=== PATIENT | male | born 1990 | race Caucasian/White ===

== ENCOUNTER 2022-05-31 10:05 | Emergency (ER) | payer BC, SELFPAY ==
[2022-05-31 10:20] VITALS: BP 122/87; PULSE 117; RESP 20; TEMP 36.3; O2SAT 98
--- NOTE | 2022-05-31 10:47 | ED.NAVMDI ---
HPI - Nausea/Vomiting/Diarrhea General Chief complaint: Nausea/Vomiting/Diarrhea Stated complaint: Vomiting/diarrhea/dehydrated Time Seen by Provider: 05/31/22 10:47 Source: patient Mode of arrival: ambulatory Limitations: no limitations History of Present Illness HPI Narrative: 31-year-old male with no significant past medical history presents to the ER with a 1 day history of -- nausea with multiple episodes of vomiting -- multiple episodes of diarrhea -- diffuse abdominal pain no fever or chills. MD elicited complaint: nausea, vomiting and diarrhea Pertinent past history: anorexia Onset (ago): day(s) ( Symptoms started yesterday.) Description of vomiting: watery Description of diarrhea: watery Associated nausea: Yes Associated abdominal pain: Yes Location of pain: none Radiation: diffuse Severity: moderate Quality: cramping Exacerbating factors: none Relieving factors: none Associated symptoms: denies other symptoms Related Data Home Medications Medication Instructions Recorded Confirmed No Home Medications 05/31/22 05/31/22 Exam Const: General: healthy appearing and no acute distress Nutritional Appearance: well nourished Orientation/consciousness: patient oriented x3 Limitations: no limitations HENMT: Head: normal to inspection Ears: external ears normal Face/Nose/Sinus: Normal external nose present Face and sinus: normal facial exam Mouth: Yes Normal oral and palatal mucosa present Throat: posterior oropharynx normal Eyes: Conjunctivae: conjunctivae normal Cornea: corneas normal Pupils: Equal, round and reactive pupils present EOM: EOMs intact bilaterally Direct Ophthalmoscopy: no photophobia Neck: Neck: normal visual inspection, no lymphadenopathy and no meningeal signs Chest: Chest palpation & inspection: normal inspection of the chest Resp: Effort & Inspection: normal respiratory effort Auscultation: clear to auscultation bilaterally Cardio: Rate: regular rate Rhythm: regular rhythm GI: GI Palp: Yes Soft to palpation Auscultation: normal bowel sounds Other: Abdomen is soft and nontender. No rigidity / rebound. Back/Spine/Pelvis: Back: no CVA tenderness Skin: General skin exam: normal color Rashes: no rashes Wounds: no wounds Neuro: General: patient oriented x3, moves all extremities, no meningeal signs, no focal motor deficits and CN's II-XI intact bilaterally Extrem: General: normal to inspection, no clubbing, cyanosis or edema and no pedal edema Psych: Mental Status: mental status grossly normal Affect: normal affect Attitude: cooperative Course Course Emergency Course: Gastroenteritis elevated lactic acid and elevated white cell count-- abdominal examination is unremarkable. Discussed with the patient about the CT scan. Will not do the CAT scan at this point. Advised to return to the ER if he has ongoing abdominal pain. Will give 2.5 L of IV fluids in view of his elevated lactate. Vital Signs Vital signs: Vital Signs Temperature 36.3 C L 05/31/22 10:20 Pulse Rate 117 H 05/31/22 10:20 Respiratory Rate 05/31/22 10:20 Blood Pressure 122/87 05/31/22 10:20 Pulse Oximetry 98 05/31/22 10:20 Oxygen Delivery Room Air 05/31/22 10:20 Temperature 36.3 C L 05/31/22 10:20 Pulse Rate 123 H 05/31/22 12:15 Respiratory Rate 05/31/22 12:15 Blood Pressure 129/86 05/31/22 12:15 Pulse Oximetry 99 05/31/22 12:15 Oxygen Delivery Room Air 05/31/22 12:15 MDM - Nausea/Vomiting/Diarrhea MDM Narrative Medical decision making narrative: Renal insufficiency gastroenteritis leukocytosis Differential Diagnosis Differential diagnosis: Likely traveler's diarrhea, food poisoning, gastroenteritis and clostridium difficile infection Medical Records Attestation: I reviewed the patient's medical records. Lab Data Attestation: I reviewed the patient's lab results. 05/31/22 11:05 05/31/22 11:05 Labs: Lab Resu
[2022-05-31] MEDS: SODIUM CHLORIDE 0.9% IV 1,000 ML 999 ML IV CONT ×2 (10:59→12:17)
[2022-05-31] MEDS: PROCHLORPERAZINE EDISYLATE 10 MG/2 ML VIAL IV PUSH (11:00)
[2022-05-31 11:12] LABS: Basophils Absolute Auto 0.03 K/mm3 (0.00-0.10); Basophils Percent Auto 0.2 % (0.0-1.0); Eosinophils Absolute Auto 0.01 K/mm3 (0.02-0.50); Eosinophils Percent Auto 0.1 % (1.0-6.0); Hemoglobin 16.3 g/dL (14.0-18.0); Immature Granulocyte Absolute 0.09 K/mm3 (0.00-0.00); Immature Granulocyte Percent A 0.5 % (0.0-0.0); Lymphocytes Absolute Auto 0.17 K/mm3 (1.10-4.50); Lymphocytes Percent Auto 0.9 % (18.0-42.0); Mean Corpuscular HGB Conc 34.7 g/dL (32.0-36.0); Mean Corpuscular Hemoglobin 29.2 pg (27.0-31.0); Mean Corpuscular Volume 84.2 fL (78.0-102.0); Monocytes Absolute Auto 0.55 K/mm3 (0.10-0.90); Monocytes Percent Auto 2.8 % (2.0-11.0); Neutrophils Percent Auto 95.5 % (50.0-70.0); Platelet Count Result 264 K/mm3 (150-420); Red Blood Count 5.58 M/mm3 (4.70-6.10); Red Cell Distribution Width 11.8 % (11.6-14.4); White Blood Count 19.9 K/mm3 (4.8-10.8)
[2022-05-31 11:23] LABS: INR 1.1; Prothrombin Time 11.6 Seconds (9.50-12.10)
[2022-05-31 11:37] LABS: Alanine Aminotransferase 66 U/L (16-63); Albumin Level 4.1 g/dL (3.4-5.0); Alkaline Phosphatase 65 U/L (46-116); Anion Gap 8 mmol/L (8-16); Aspartate Amino Transferase 30 U/L (15-37); Bilirubin,Total 0.8 mg/dL (0.00-1.00); Blood Urea Nitrogen 18 mg/dL (7-18); Calcium 8.9 mg/dL (8.5-10.1); Carbon Dioxide 28 mmol/L (21-32); Chloride 100 mmol/L (98-108); Estimated CRCL calculation 73 ml/min; Estimated Glomerular Filt Rate > 60; Glucose 133 mg/dL (70-99); Osmolality Calculated 285 mOsm/kg (285-295); Potassium 4.5 mmol/L (3.5-5.1); Sodium 136 mmol/L (136-145); Total Protein 7.5 g/dL (6.4-8.2)
[2022-05-31 11:38] LABS: Lipase 18 U/L (16-77); Troponin I < 4.0 ng/L (0.00-60.4)
[2022-05-31 11:39] LABS: Lactic Acid Reflex 3.2 mmol/L (0.4-2.0)
[2022-05-31 12:15] VITALS: BP 129/86; PULSE 123; RESP 20; O2SAT 99
[2022-05-31] MEDS: SODIUM CHLORIDE 0.9% IV 500 ML 999 ML IV CONT (12:17)
[2022-05-31 13:06] VITALS: BP 130/63; PULSE 123; RESP 20; TEMP 36.6; O2SAT 98
== END 2022-05-31 13:12 | disposition home or self-care (01) ==
PROVIDERS: Emergency Provider Internal Medicine Critical Care Medicine
DX: K52.9 Noninfective gastroenteritis and colitis, unspecified (principal); E86.0 Dehydration; D72.829 Elevated white blood cell count, unspecified
CPT/HCPCS: 36415; 80053; 83605; 83690; 84484; 85025; 85610; 96361; 96374; 99284; J0780; J7030; J7040

== ENCOUNTER 2023-02-15 19:45 | Emergency (ER) | payer BC, SELFPAY ==
--- NOTE | ~2023-02-15 | CT_ITS ---
EXAMINATION: CT abdomen pelvis wo con DATE: 02/15/2023 20:23 INDICATION: LEFT FLANK PAIN X 2 HRS. HX OF KIDNEY STONES. TECHNIQUE: Computed tomography (CT) of the abdomen and pelvis was performed without intravenous contr ast. Automated exposure control and iterative reconstruction technique were employed. The dose-length product was 233.42 mGy-cm. COMPARISON: None. FINDINGS: Lower thorax: Right middle lobe scar. Liver: Diffuse fatty infiltration. Biliary/Gallbladder: Gallbladder is normal. No bile duct dilation. Pancreas: No mass or duct dilation. Spleen: Normal. Adrenals:No mass. Kidneys: Mild left perinephric stranding. Moderate pelviectasis, caliectasis, and proximal ureterecta sis. 7 mm stone in the proximal left ureter. Additional punctate bilateral nonobstructing calculi. No suspicious mass. GI tract: No small or large bowel dilation. Normal appendix. Mesentery/Peritoneum: No ascites, mass, or free air. Retroperitoneum: No mass. Pelvis: Pelvic organs are within normal limits. Soft Tissues: Soft tissues and body wall unremarkable. Bones: No acute osseous finding. IMPRESSION: 7 mm proximal left ureteral stone causing moderate obstructive uropathy. Hepatic steatosis. Reviewed, dictated and finalized at location K.
[2023-02-15 19:47] VITALS: BP 129/99; PULSE 88; RESP 18; TEMP 37.1; O2SAT 100
[2023-02-15] MEDS: KETOROLAC 30 MG/ML VIAL (*BKC) IV PUSH (20:09)
[2023-02-15] MEDS: SODIUM CHLORIDE 0.9% IV 1,000 ML 999 ML IV CONT (20:11)
[2023-02-15] MEDS: ONDANSETRON INJ 4 MG/2 ML VIAL IV PUSH (20:11)
--- NOTE | 2023-02-15 20:22 | ED.BACK ---
HPI - Back Pain/Injury General Chief Complaint: Back Pain/Injury Stated Complaint: Back Pain Source: patient Mode of arrival: ambulatory Limitations: no limitations History of Present Illness HPI Narrative: This is a 32-year-old male that presents with left flank pain radiating into his left groin started earlier today has a history of kidney stones, currently no hematuria no dysuria does have some nausea with no vomiting no chest pain no shortness of breath no fever chills. MD elicited complaint: back pain Pertinent past history: prior back pain Onset (ago): hour(s) Timing: constant Severity: severe Pain scale (0-10): 8 Quality: stabbing Location: left flank Radiation: abdomen Exacerbating factors: none Related Data Allergies Allergy/AdvReac Type Severity Reaction Status Date / Time Sulfa (Sulfonamide Allergy Unknown Verified 05/31/22 13:14 Antibiotics) Review of Systems Review of Systems: All systems reviewed & are unremarkable except as noted in HPI and below PMFSH Past Medical History Medical History History of nephrolithiasis Exam Const: General: no acute distress Nutritional Appearance: well nourished Orientation/consciousness: patient oriented x3 Limitations: no limitations Eyes: Conjunctivae: conjunctivae normal Pupils: Equal, round and reactive pupils present Neck: Neck: normal visual inspection and no lymphadenopathy Chest: Chest palpation & inspection: normal inspection of the chest Resp: Effort & Inspection: normal respiratory effort Auscultation: clear to auscultation bilaterally Cardio: Rate: regular rate Rhythm: regular rhythm GI: GI Palp: Yes Soft to palpation and Yes Tenderness to palpation present (GI) Auscultation: normal bowel sounds : General: Yes CVA tenderness Male General Exam: Yes normal external exam Urinary Catheter: Urinary Catheter: patent and draining Back/Spine/Pelvis: Back: CVA tenderness Skin: General skin exam: normal color Rashes: no rashes Wounds: no wounds Neuro: General: patient oriented x3 and moves all extremities Extrem: General: normal to inspection and no clubbing, cyanosis or edema Psych: Mental Status: mental status grossly normal Affect: normal affect Course Course Emergency Course: patient with left flank receiving IV fluids, received IV Toradol and Zofran, CT scan and blood work reviewed with patient. Vital Signs Vital signs: Vital Signs Temperature 37.1 C 02/15/23 19:47 Pulse Rate 88 09/30/23 19:47 Respiratory Rate 18 02/15/23 19:47 Blood Pressure 129/99 H 02/15/23 19:47 Pulse Oximetry 100 02/15/23 19:47 Oxygen Delivery Room Air 02/15/23 19:47 Temperature 37.1 C 02/15/23 19:47 Pulse Rate 88 02/15/23 19:47 Respiratory Rate 18 02/15/23 19:47 Blood Pressure 129/99 H 02/15/23 19:47 Pulse Oximetry 100 02/15/23 19:47 Oxygen Delivery Room Air 02/15/23 19:47 Critical Care Time Critical Care Time Critical Care Time: No Discharge Plan Discharge Clinical Impression: Urolithiasis Qualifiers: Urinary calculus location: ureter Qualified Code(s): N20.1 - Calculus of ureter Patient Disposition: Home, Self-Care Condition: Stable Instructions: Antibiotic Form, Kidney Stones (ED) Additional Instructions: advised to follow-up with primary for referral to urology will supply patient with a strainer, take medicine as prescribed. Prescriptions: New tramadol 50 mg tablet 50 mg PO Q6H PRN (Reason: pain) Qty: 20 0RF tamsulosin [Flomax] 0.4 mg capsule 0.4 mg PO DAILY Qty: 7 0RF ondansetron 4 mg tablet,disintegrating 4 mg PO Q6H PRN (Reason: nausea and vomiting) Qty: 14 0RF Follow-up/Referrals: UNKNOWN,DOCTOR [Primary Care Provider] - Time of Disposition: 20:43
[2023-02-15 20:30] VITALS: BP 138/95; PULSE 71; RESP 18; O2SAT 98
[2023-02-15] MEDS: MORPHINE SULFATE (*CRX) 4 MG/ML INJ IV PUSH (20:44)
--- NOTE | 2023-02-15 21:06 | PC.NURSE ---
Addendum entered by Luis Young RN 02/15/23 21:27: 2054-RECEIVABLE CLERK MADE AWARE LABS NEVER DRAWN RECEIVABLE CLERK FAILED TO CALL LAB UNIT WAS BUSY/FULL SO LAB STAFF NEVER ARRIVED TO DRAW LABS. PT AND SIGNIFICANT OTHER UPDATED REGARDING DELAY-LABS. BOTH ACKNOWLEDGED AND VERBALIZED UNDERSTANDING. PT DENIES ANY NEEDS AT THIS TIME. CALL LIGHT REMAINS IN REACH. RECEIVABLE CLERK OBTAINED BLOOD DRAW AND WALKED LABS DOWN. RECEIVABLE CLERK CALLED AND SPOKE WITH WILI PECK TO MAKE AWARE OF LAB DROP OFF. 2024-PT RETURNS FROM IMAGING, VIA HOSPITAL WHEELCHAIR, ESCORTED BY [facility]. 2014-PT TRANSPORTED TO IMAGING, VIA HOSPITAL WHEELCHAIR ESCORTED BY [employer]. PT SIGNIFICANT OTHER IS BROUGHT BACK TO BEDSIDE AND PROVIDED UPDATE. Original Note: 2054-RECEIVABLE CLERK MADE AWARE LABS NEVER DRAWN RECEIVABLE CLERK FAILED TO CALL LAB SO LAB STAFF NEVER ARRIVED TO DRAW LABS. PT AND SIGNIFICANT OTHER UPDATED REGARDING DELAY-LABS. BOTH ACKNOWLEDGED AND VERBALIZED UNDERSTANDING. PT DENIES ANY NEEDS AT THIS TIME. CALL LIGHT REMAINS IN REACH. RECEIVABLE CLERK OBTAINED BLOOD DRAW AND WALKED LABS DOWN. RECEIVABLE CLERK CALLED AND SPOKE WITH WILI PECK TO MAKE AWARE OF LAB DROP OFF. 2024-PT RETURNS FROM IMAGING, VIA HOSPITAL WHEELCHAIR, ESCORTED BY [facility]. 2014-PT TRANSPORTED TO IMAGING, VIA HOSPITAL WHEELCHAIR ESCORTED BY [facility] [facility]. PT SIGNIFICANT OTHER IS BROUGHT BACK TO BEDSIDE AND PROVIDED UPDATE.
[2023-02-15 21:11] LABS: Basophils Absolute Auto 0.05 K/mm3 (0.00-0.10); Basophils Percent Auto 0.4 % (0.0-1.0); Eosinophils Absolute Auto 0.13 K/mm3 (0.02-0.50); Hematocrit 43.4 % (40.0-54.0); Hemoglobin 14.9 g/dL (14.0-18.0); Immature Granulocyte Absolute 0.07 K/mm3 (0.00-0.00); Immature Granulocyte Percent A 0.5 % (0.0-0.0); Lymphocytes Absolute Auto 1.02 K/mm3 (1.10-4.50); Lymphocytes Percent Auto 7.8 % (18.0-42.0); Mean Corpuscular HGB Conc 34.3 g/dL (32.0-36.0); Mean Corpuscular Hemoglobin 29.3 pg (27.0-31.0); Mean Corpuscular Volume 85.4 fL (78.0-102.0); Mean Platelet Volume 10.1 fl (8.7-11.0); Monocytes Absolute Auto 0.61 K/mm3 (0.10-0.90); Monocytes Percent Auto 4.6 % (2.0-11.0); Neutrophils Absolute Auto 11.3 K/mm3 (1.7-7.2); Neutrophils Percent Auto 85.7 % (50.0-70.0); Platelet Count Result 291 K/mm3 (150-420); Red Blood Count 5.08 M/mm3 (4.70-6.10); Red Cell Distribution Width 11.6 % (11.6-14.4); White Blood Count 13.2 K/mm3 (4.8-10.8)
[2023-02-15 21:28] LABS: Alanine Aminotransferase 83 U/L (16-63); Albumin Level 3.8 g/dL (3.4-5.0); Alkaline Phosphatase 59 U/L (46-116); Anion Gap 13 mmol/L (8-16); Aspartate Amino Transferase 35 U/L (15-37); Bilirubin,Total 0.4 mg/dL (0.00-1.00); Blood Urea Nitrogen 12 mg/dL (7-18); Calcium 8.8 mg/dL (8.5-10.1); Carbon Dioxide 23 mmol/L (21-32); Chloride 104 mmol/L (98-108); Estimated CRCL calculation 75 ml/min; Estimated Glomerular Filt Rate > 60; Glucose 128 mg/dL (70-99); Osmolality Calculated 291 mOsm/kg (285-295); Potassium 3.6 mmol/L (3.5-5.1); Sodium 140 mmol/L (136-145); Total Protein 6.7 g/dL (6.4-8.2)
--- NOTE | 2023-02-15 21:45 | PC.NURSE ---
214-OCCUPATIONAL THERAPIST REHAB MANAGER WALKED PT URINE SPECIMEN TO LAB. WILI PECK PRESENT AND MADE AWARE.
[2023-02-15 21:54] LABS: Appearance Urine Clear (Clear); Bilirubin Urine Negative (Negative); Blood Urine 1+ (Negative); Color Urine Yellow (Yellow); Glucose Urine UA Negative (Negative); Ketones Urine Negative (Negative); Leukocyte Esterase Ur Negative LEU/UL (Negative); Nitrate Urine Negative (Negative); Protein Urine Negative (Negative); Urobilinogen Urine 0.2 mg/dL (0.2-1.0)
[2023-02-15 22:01] LABS: Add Urine Microscopic? YES; Calcium Oxalate Crystals Urine Present /hpf; Mucus Urine Heavy /lpf
[2023-02-15 22:12] VITALS: BP 138/89; PULSE 73; RESP 16; O2SAT 98
== END 2023-02-15 22:12 | disposition home or self-care (01) ==
PROVIDERS: Emergency Provider Emergency Medicine
DX: N20.1 Calculus of ureter (principal)
CPT/HCPCS: 36415; 74176; 80053; 81001; 85025; 96361; 96374; 96375; 99284; J1885; J2270; J2405; J7030

== ENCOUNTER 2023-03-10 17:10 | Emergency (ER) | payer BC, SELFPAY ==
--- NOTE | 2023-03-10 17:17 | ED.GENADULT ---
HPI - General Adult General Chief complaint: Back Pain/Injury Stated complaint: kidney stone Time Seen by Provider: 03/10/23 17:15 History of Present Illness HPI narrative: The patient is a 32-year-old male who was seen here 02/15/2023 for left flank pain and diagnosed with a 7 mm left ureteral stone, CT results below. He was prescribed tramadol and Flomax but only a few pills. He has run out of both. He is currently only taking Tylenol and ibuprofen as needed for pain. No vomiting. He has met with a urologist and is scheduled for external shockwave lithotripsy at [facility] in [facility] tomorrow. His pain has continued and is more severe than usual, left flank and left lower quadrant of the abdomen radiating to the left back, with hematuria and nausea but no vomiting. No fevers or chills. No dysuria. Related Data Allergies Allergy/AdvReac Type Severity Reaction Status Date / Time Sulfa (Sulfonamide Allergy Unknown Verified 03/10/23 17:19 Antibiotics) Review of Systems Review of Systems: All systems reviewed & are unremarkable except as noted in HPI and below Constitutional: Constitutional: Denies chills, Denies excessive sweating, Denies fatigue, Denies fever(s), Denies headache(s) and Denies weakness Eyes: Eyes: Denies change in vision and Denies photophobia ENT: Denies dysphagia, Denies dizziness, Denies headache(s), Denies lip swelling, Denies nasal congestion, Denies sore throat and Denies tongue swelling Cardiovascular: Cardiovascular: Denies chest pain, Denies syncope, Denies rapid heart rate and Denies dyspnea Respiratory: Respiratory: Denies cough, Denies dyspnea and Denies wheezing Gastrointestinal: Gastrointestinal: Reports abdominal pain, Denies constipation, Denies dysphagia, Denies diarrhea, Reports nausea and Denies vomiting Genitourinary: Genitourinary: Reports hematuria, Denies dysuria, Denies urinary frequency and Denies urinary urgency Musculoskeletal: Musculoskeletal: Reports back pain, Denies myalgias, Denies arthralgias, Denies joint swelling and Denies numbness Integumentary/Breasts: Skin/Breast: Denies pruritus, Denies erythema and Denies rash Neurologic: Denies confusion, Denies dizziness, Denies syncope, Denies headache(s), Denies focal weakness, Denies numbness and Denies weakness Psychiatric: Psychiatric: Denies anxiety and Denies confusion Endocrine: Endocrine: Denies excessive sweating and Denies fatigue Hematologic/Lymphatic: Hematologic/Lymphatic: Denies easy bleeding and Denies easy bruising Allergic/Immunologic: Allergic/Immunologic: Denies lip swelling, Denies tongue swelling and Denies wheezing PMFSH Past Medical History Medical History History of nephrolithiasis Exam Const: General: healthy appearing, no acute distress, alert and well nourished Nutritional Appearance: well nourished Orientation/consciousness: patient oriented x3 Limitations: no limitations HENMT: Head: normal to inspection Ears: external ears normal Face/Nose/Sinus: normal facial exam Face and sinus: normal facial exam Mouth: Yes moist mucous membranes Throat: posterior oropharynx normal Eyes: Conjunctivae: conjunctivae normal Pupils: Equal, round and reactive pupils present EOM: EOMs intact bilaterally Neck: Neck: normal visual inspection and no meningeal signs Chest: Chest palpation & inspection: normal inspection of the chest and no tenderness Resp: Effort & Inspection: normal respiratory effort and not labored Auscultation: clear to auscultation bilaterally, no crackles, no rhonchi and no wheezes Cardio: Rate: regular rate Rhythm: regular rhythm Heart sounds: no murmurs GI: Inspection: non-distended GI Palp: Yes Soft to palpation, Yes Tenderness to palpation present (GI) (in LLQ and L flank, moderate), No Guarding due to palpation present (GI) and No Rebound tenderness present : General: Yes CVA tenderness (on
[2023-03-10 17:21] VITALS: BP 132/96; PULSE 97; RESP 17; TEMP 36.4; O2SAT 98
[2023-03-10] MEDS: SODIUM CHLORIDE 0.9% IV 1,000 ML 999 ML IV CONT (17:52)
[2023-03-10] MEDS: KETOROLAC 30 MG/ML VIAL (*BKC) IV PUSH (17:53)
[2023-03-10] MEDS: ONDANSETRON INJ 4 MG/2 ML VIAL IV PUSH (17:54)
[2023-03-10 17:55] LABS: Basophils Absolute Auto 0.04 K/mm3 (0.00-0.10); Basophils Percent Auto 0.5 % (0.0-1.0); Eosinophils Absolute Auto 0.09 K/mm3 (0.02-0.50); Eosinophils Percent Auto 1.1 % (1.0-6.0); Hematocrit 45.8 % (40.0-54.0); Hemoglobin 15.7 g/dL (14.0-18.0); Immature Granulocyte Absolute 0.03 K/mm3 (0.00-0.00); Immature Granulocyte Percent A 0.4 % (0.0-0.0); Lymphocytes Absolute Auto 1.77 K/mm3 (1.10-4.50); Lymphocytes Percent Auto 20.8 % (18.0-42.0); Mean Corpuscular HGB Conc 34.3 g/dL (32.0-36.0); Mean Corpuscular Hemoglobin 29.2 pg (27.0-31.0); Mean Corpuscular Volume 85.3 fL (78.0-102.0); Mean Platelet Volume 9.7 fl (8.7-11.0); Monocytes Absolute Auto 0.54 K/mm3 (0.10-0.90); Monocytes Percent Auto 6.4 % (2.0-11.0); Neutrophils Percent Auto 70.8 % (50.0-70.0); Platelet Count Result 347 K/mm3 (150-420); Red Blood Count 5.37 M/mm3 (4.70-6.10); Red Cell Distribution Width 11.6 % (11.6-14.4); White Blood Count 8.5 K/mm3 (4.8-10.8)
[2023-03-10] MEDS: TAMSULOSIN HCL 0.4 MG CAPSULE PO (17:58)
[2023-03-10 18:17] LABS: Alanine Aminotransferase 80 U/L (16-63); Albumin Level 4.2 g/dL (3.4-5.0); Alkaline Phosphatase 63 U/L (46-116); Amylase 34 U/L (25-115); Anion Gap 13 mmol/L (8-16); Aspartate Amino Transferase 39 U/L (15-37); Bilirubin,Total 0.6 mg/dL (0.00-1.00); Blood Urea Nitrogen 13 mg/dL (7-18); Calcium 9.6 mg/dL (8.5-10.1); Carbon Dioxide 27 mmol/L (21-32); Chloride 101 mmol/L (98-108); Estimated Glomerular Filt Rate 59; Glucose 105 mg/dL (70-99); Lipase 33 U/L (16-77); Osmolality Calculated 292 mOsm/kg (285-295); Potassium 3.7 mmol/L (3.5-5.1); Sodium 141 mmol/L (136-145); Total Protein 7.4 g/dL (6.4-8.2)
[2023-03-10 18:44] LABS: Appearance Urine Clear (Clear); Bilirubin Urine 1+ (Negative); Blood Urine 3+ (Negative); Glucose Urine UA Negative (Negative); Ketones Urine Trace (Negative); Leukocyte Esterase Ur Trace LEU/UL (Negative); Nitrate Urine Negative (Negative); Protein Urine 2+ (Negative); Specific Grav Ur >= 1.030 (1.010-1.020)
[2023-03-10] MEDS: MORPHINE SULFATE (*CRX) 4 MG/ML INJ IV PUSH (18:49)
[2023-03-10 18:52] LABS: Add Urine Microscopic? YES; Bacteria Urine 4+ /hpf; Calcium Oxalate Crystals Urine Present /hpf; Color Urine Dark Orange (Yellow); RBC Urine >75 /hpf (0-2); Squamous Epithelial Cell Urine Occasional /hpf (Few)
[2023-03-10 18:53] LABS: Amorphous Sediment Urine Heavy
[2023-03-10 18:59] VITALS: BP 147/106; PULSE 81; RESP 18; O2SAT 100
[2023-03-10 19:42] VITALS: PULSE 87; RESP 18; O2SAT 96
[2023-03-10 20:08] VITALS: BP 136/78; PULSE 78; RESP 20; TEMP 36.6; O2SAT 98
== END 2023-03-10 20:09 | disposition home or self-care (01) ==
PROVIDERS: Emergency Provider Emergency Medicine
DX: N20.2 Calculus of kidney with calculus of ureter (principal); N39.0 Urinary tract infection, site not specified
CPT/HCPCS: 36415; 80053; 81001; 82150; 83690; 85025; 96361; 96365; 96375; 99284; A9270; J0696; J1885; J2270; J2405; J7030

== ENCOUNTER 2025-04-09 02:32 | Emergency (ER) | payer BC, SELFPAY ==
--- NOTE | ~2025-04-09 | CT_ITS ---
CT HEAD NON-CONTRAST Clinical History: FRONTAL HEADACHE X 1 WEEK. HYPERTENSION. Comparison: None Technique: Unenhanced axial images skull base to vertex Coronal, sagittal reformats CT images acquired with automatic exposure control for dose reduction DLP: 605 mGy-cm Findings: Sulci, ventricles: Unremarkable. No intracerebral hemorrhage. No evidence acute territorial infarct. No mass effect, midline shift. Bony calvarium intact. Visualized paranasal sinuses: Clear. Mastoid air cells: Clear. Small contusion right occipital scalp. IMPRESSION: 1. No acute intracranial findings. Reviewed, dictated and finalized at location R. [employer]
[2025-04-09 02:32] VITALS: BP 161/106; PULSE 108; RESP 16; TEMP 36.6; O2SAT 99
--- OUTSIDE RECORDS SUMMARY | 2025-04-09 02:56 | XMS_ITS | Clinical Summary ---
Author Organization [facility] Address [address] [place] [address] Care Team Providers Care Rn Correctional Name Role Phone Derek Patten MD Primary Care Provider [phone] Source Comments [facility],non-owned Affiliates and Associated Physician Practices is amultiple site organization consisting of ambulatory clinics and hospital sitesin [place], [place], [place] and [place]. This disclosure is being madepursuant to the Care Everywhere program and may not contain all information available regarding this patient. Last updated 18.[facility] Allergies Active Allergy Reactions Criticality Noted Date Comments Sulfa Drugs 01/22/2014 Medications * Be aware that medications may not be up to date on this document. Alwaysverify current medications with the patient. Tobramycin (TOBREX) 0.3 % ophthalmic ointment Instill into left eye 2 times daily. 3.5 g 0 4 Active Additional Information Patient not taking.Reported on 03/12/2021 traMADol (ULTRAM) 50 MG tablet Take 1 Tab by mouth every 4 hours as needed for Pain. 20 Tab 0 4 Active Additional Information Patient not taking.Reported on 03/12/2021 ibuprofen (MOTRIN) 800 MG tablet Take 1 Tab by mouth 3 times daily as needed for Pain. 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 Gender Identity Not on file Sexual Orientation Not on file Last Filed Vital Signs Vital Sign Reading Time Taken Comments Blood Pressure 151/95 03/12/2021 11:11 AM CDT Pulse 84 03/12/2021 11:11 AM CDT Temperature 36.4 C (97.5 F) 03/12/2021 11:11 AM CDT Respiratory Rate 18 03/12/2021 11:11 AM CDT Oxygen Saturation 99% 03/12/2021 11:11 AM CDT Inhaled Oxygen Concentration - - Weight 90.7 kg (200 lb) 03/12/2021 11:11 AM CDT Height 177.8 cm (5' 10) 03/12/2021 11:11 AM CDT Body Mass Index 28.7 03/12/2021 11:11 AM CDT Plan of Treatment Health Maintenance Due Date Last Done Comments HIV SCREENING 2005 DTAP/TDAP/TD VACCINES (1 - Tdap) 2009 HEPATITIS B VACCINE (1 of 3 - 19+ 3-dose series) 2009 HPV VACCINE (1 - 3-dose SCDM series) 2017 DEPRESSION SCREENING 05/19/2024 COVID-19 VACCINE (3 - 2024-2 6 season) 2025 11/03/2020, 10/13/2020 INFLUENZA VACCINE (#1) 2025 ZOSTER VACCINE (1 of 2) 2040 HEPATITIS C SCREENING Completed 03/12/2021 HIB VACCINE Aged Out No longer eligi ble based on patient's age to complete this topic MENINGOCOCCAL (Group B) VACCINE SHARED DECISION-MAKING Aged Out No longer eligible based on patient's age to complete this topic MENINGOCOCCAL GROUPS A/C/Y/W VACCINE Aged Out No longer eligible b ased on patient's age to complete this topic PNEUMOCOCCAL VACCINE Aged Out No long er eligible based on patient's age to complete this topic Procedures Procedure Name Priority Date/Time Associated Diagnosis Comments HEPATITIS PANEL Routine 03/12/2021 11:54 AM CDT Elevated LFTs from Last 3 Months or Most Recently Relevant to Health Maintenance Results * (ABNORMAL) HEPATITIS PANEL (03/12/2021 11:54 AM CDT) Hepatitis A Virus Antibody Total REACTIVE( A) NON-REACT YOSI [facility] Comment: For additional information, please refer to http://[employer]/faq/YML940 (This link is being provided for informational/ educational purposes only.) Hepatitis B Virus Surface Antibody NON-REACT YOSI NON-REACT YOSI [facility] Hepatitis B Virus Surface Antigen NON-REACT YOSI NON-REACT YOSI [facility] Confirmation [facility] Hepatitis B Core Virus Antibody Total NON-REACT YOSI NON-REACT YOSI [facility] Hepatitis C Antibody NON-REACT YOSI NON-REACT YOSI [facility] Signal to Cut-Off 0.00 <1.00 [facility] Comment: HCV antibody was non-reactive. There is no laboratory evidence of HCV infection. In most cases, no further action is required. However, if recent HCV exposure is suspected, a test for HCV RNA (test code 72859) is suggested. For additional information please refer to http://[employer]/faq/ZAC04p6 (This link is being provided for informational/ educational purposes only.) Test Performed at: [facility] [address] [place] [address] RADHA DAVIS DO,MPH Blood BLOOD SPECIMEN / Unknown 03/12/2021 11:54 AM CDT 03/12/2021 11:54 AM CDT Derek Patten MD LAB - CHEMISTRY ORDERABLES Fin al Result [facility] [id number] [place] [address] from Last 3 Months or Most Recently Relevant to Health Maintenance Care Teams Rn Correctional Relationship Specialty Start Date End Date Derek Patten MD [address] [id number] PCP - General Family Medicine 03/09/21
--- OUTSIDE RECORDS SUMMARY | 2025-04-09 02:56 | XMS_ITS | Encounter Summary ---
Author Organization [facility] Address 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
--- OUTSIDE RECORDS SUMMARY | 2025-04-09 02:56 | XMS_ITS | Clinical Summary ---
Author Organization [facility] Address [address] [place] [address] Phone Care Team Providers Care Cryogenic Transport Driver Name Role Phone Derek Patten MD Primary Care Provider [phone] Allergies Active Allergy Reactions Criticality Noted Date Comments Sulfa (Sulfonamide Antibiotics) Unknown 09/06/2014 Trouble waking up as a baby Medications sertraline HCl (ZOLOFT ORAL) Take by mouth. A ctive fluticasone propionate (FLONASE) 50 mcg/spray [place], Suspension nasal inhaler Administer 2 Sprays in each nostril daily. 16 Gram 9 Active predniSONE (DELTASONE) 20 mg tablet 40 mg x 5 days. 10 Tablet 9 Active benzonatate (TESSALON) 200 mg capsule Take 1 Capsule (200 mg) by mouth 3 times daily as needed for Cough. 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 Gender Identity Not on file Sexual Orientation Not on file Last Filed Vital Signs Vital Sign Reading Time Taken Comments Blood Pressure 142/92 08/17/2018 5:20 PM CDT Pulse 90 08/17/2018 5:20 PM CDT Temperature 36.7 C (98.1 F) 08/17/2018 5:20 PM CDT Respiratory Rate 18 08/17/2018 5:20 PM CDT Oxygen Saturation 100% 08/17/2018 5:20 PM CDT Inhaled Oxygen Concentration - - Weight 81.6 kg (180 lb) 08/17/2018 5:20 PM CDT Height 177.8 cm (5' 10) 08/17/2018 5:20 PM CDT Body Mass Index 25.83 08/17/2018 5:20 PM CDT Plan of Treatment Health Maintenance Due Date Last Done Comments DTAP/TDAP/TD VACCINES (1 - Tdap) 2009 HEPATITIS B VACCINES (1 of 3 - 19+ 3-dose series) 06/2009 HPV VACCINES (1 - 3-dose SCDM series) 2017 INFLUENZA VACCINE (#1) 2024 Insurance Care Teams Cryogenic Transport Driver Relationship Specialty Start Date End Date Derek Patten MD PCP - General Family Practice 08/17/18
--- OUTSIDE RECORDS SUMMARY | 2025-04-09 02:56 | XMS_ITS | Encounter Summary ---
Author Organization [facility] Address 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
--- NOTE | 2025-04-09 03:02 | ED_ITS ---
HPI - Headache General Chief Complaint: Headache Stated Complaint: headache and high blood pressure Time Seen by Provider: 04/09/25 02:36 History of Present Illness HPI Narrative: 34-year-old white male without previous history of hypertension, on no medications, reports a headache over the past week that has been moderately intense, diffuse, at times throbbing, and he began checking his blood pressure and notes that his been high the past week in the 160-170 over 100-112 range. No aura, no photophobia, no nausea, chest pain, or shortness of breath. He called his physician marianna and did not go away and he referred him in for evaluation. He does not smoke. Alcohol consumption is rare. 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 No abdominal pain, nausea vomiting, diarrhea constipation, dysuria urgency or frequency. Related Data Allergies Allergy/AdvReac Type Severity Reaction Status Date / Time Sulfa (Sulfonamide Allergy Unknown Verified 04/09/25 02:59 Antibiotics) Review of Systems 2 Review of Systems: ROS is negative except as in HPI [facility] Past Medical History Medical History History of nephrolithiasis Exam 2 Narrative: pleasant, well-appearing child, appropriately interactive, no acute distress Const: General: cooperative, healthy appearing, comfortable, no acute distress (Patient is very anxious, looks at his blood pressure every couple of minute), well developed, alert, awake and Physically active Orientation/consciousness: patient oriented x3 HENMT: Head: normal to inspection, normocephalic and atraumatic Ears: h earing grossly normal bilaterally and external ears normal Face/Nose/Sinus: N ormal external nose present, Normal nares present, Normal nasal mucous membranes and turbinates present and normal facial exam Face and sinus: normal facial exam Mouth: Yes Normal oral and palatal mucosa present, Yes lip normal, Yes tongue normal, Yes oropharynx normal and Yes moist mucous membranes Teeth and gingiva: dentition normal Throat: posterior oropharynx normal and tonsils normal ( erythematous) Eyes: General: appearance normal, both eyes and all related structures A lignment and Position: alignment normal and position normal Periorbital: p eriorbital findings normal Eyelids: eyelids normal Conjunctivae: c onjunctivae normal Sclera: sclerae normal Cornea: corneas normal P upils: Equal, round and reactive pupils present EOM: EOMs intact bilaterally Neck: Neck: normal visual inspection, full ROM and no lymphadenopathy Chest: Chest palpation & inspection: normal inspection of the chest Resp: Effort & Inspection: normal respiratory effort, able to speak in complete sentences, no audible wheezes, no respiratory distress and no use of accessory muscles Auscultation: clear to auscultation bilaterally Cardio: Jugular venous distension: no JVD Rate: regular rate Rhythm: r egular rhythm GI: Inspection: normal to inspection GI Palp: No abdominal tenderness, No Tenderness to palpation present (GI), No Guarding due to palpation present (GI), No No hepatosplenomegaly present, No Palpable mass present and No Rebound tenderness present Skin: General skin exam: normal color, no rashes or lesions noted, elasticity normal and turgor normal Neuro: General: patient oriented x3, gait normal, tone normal and moves all extremities Cranial nerves: Yes CN's II-XII intact bilaterally, Yes Equal, round and reactive pupils present and Yes Bilaterally intact EOM present S peech: normal speech Motor exam (neuro): 5/5 motor strength present throughout and Normal motor muscle tone present throughout Sensory Exam: n ormal sensation Extrem: General: normal to inspection, normal exam except as noted and no pedal edema Psych: Appearance: grossly normal and well kempt Mental Status: mental status grossly normal Speech and movement: Normal speech and movement present Affect: normal affect Attitude: cooperative Thought process: Normal thought process present Course Course Emergency Course: Differential diagnosis includes but is not limited to headache secondary to hypertension, migraine headache, tension headache, muscular headache, mass, cerebral edema, electrolyte abnormality, renal failure, substance abuse Will get CBC, CMP, EKG Will treat with 20 hydralazine IV, 10 mg of amlodipine p.o.. Will get a head CT. Will give Compazine 10 mg IV push, Benadryl 25 mg IV push. If that CT is negative will give Toradol CBC, CMP were normal EKG did not demonstrate any acute ischemia please see the signed copy scanned in to the chart. CT head was negative, patient's headache completely resolved with medications, blood pressure came down to the 150s over 90s and I was comfortable with that, Will discharge on amlodipine and naproxen Medical decision making complexity and risk moderate to Vital Signs Vital signs: Vital Signs Temperature 36.6 C 04/09/25 02:32 Pulse Rate 108 H 04/09/25 02:32 Respiratory Rate 16 04/09/25 02:32 Blood Pressure 161/106 H 04/09/25 02:32 Pulse Oximetry 99 04/09/25 02:32 Oxygen Delivery Room Air 04/09/25 02:32 Temperature 36.7 C 04/09/25 04:49 Pulse Rate 98 04/09/25 04:49 Respiratory Rate 20 04/09/25 04:49 Blood Pressure 152/94 H 04/09/25 04:49 Pulse Oximetry 98 04/09/25 04:49 Oxygen Delivery Room Air 04/09/25 04:49 MDM - Headache Lab Data 04/09/25 03:06 04/09/25 03:06 Labs: Lab Results 04/09/25 Range/Units 03:06 WBC 9.9 (4.8-10.8) K/mm3 RBC 5.51 (4.70-6.10) M/mm3 Hgb 15.9 (14.0-18.0) g/dL Hct 46.9 (40.0-54.0) % MCV 85.1 (78.0-102.0) fL MCH 28.9 (27.0-31.0) pg MCHC 33.9 (32-36) g/dL RDW 11.9 (11.6-14.4) % Plt Count 324 (150-420) K/mm3 MPV 9.5 (8.7-11.0) fl Immature Gran % (Auto) 0.3 H (0.0-0.0) % Neut % (Auto) 65.0 (50.0-70.0) % Lymph % (Auto) 24.3 (18.0-42.0) % [place] % (Auto) 6.8 (2.0-11.0) % Eos % (Auto) 3.1 (1.0-6.0) % Baso % (Auto) 0.5 (0.0-1.0) % Lymph # (Auto) 2.41 (1.10-4.50) K/mm3 [place] # (Auto) 0.67 (0.10-0.90) K/mm3 Eos # (Auto) 0.31 (0.02-0.50) K/mm3 Baso # (Auto) 0.05 (0.00-0.10) K/mm3 Abs Immat Gran (auto) 0.03 H (0.00-0.00) K/mm3 Absolute Neuts (auto) 6.43 (1.70-7.20) K/mm3 Absolute Nucleated RBC 0.00 (0.00-0.00) K/mm3 Nucleated RBC % 0.0 (0-0.0) % Sodium 144 (137-145) mmol/L Potassium 3.5 (3.4-5.0) mmol/L Chloride 102 (98-107) mmol/L Carbon Dioxide 29 (22-30) mmol/L Anion Gap 13 H (4-12) mmol/L BUN 16 (9-20) mg/dL Creatinine 1.25 (0.7-1.3) mg/dL Estim Creat Clear Calc 77 ml/min Estimated GFR > 60 (59 - ) Glucose 126 H (65-110) mg/dL Calculated Osmolality 301 H (285-295) mOsm/kg Calcium 9.7 (8.4-10.2) mg/dL Total Bilirubin 0.4 (0.2-1.3) mg/dL AST 41 (17-59) U/L ALT 64 H (6-50) U/L Alkaline Phosphatase 66 (38-126) U/L Total Protein 7.9 (6.3-8.2) g/dL Albumin 4.8 (3.5-5.1) g/dL Discharge Plan Discharge Clinical Impression: Hypertension, uncontrolled Headache Qualifiers: Headache type: unspecified Headache chronicity pattern: acute headache I ntractability: not intractable Qualified Code(s): R51.9 - Headache, unspecified Patient Disposition: Home Condition: Stable Instructions: Acute Headache (DC), Hypertension (ED) Additional Instructions: Check your blood pressures twice a day and record that information and take it with you when you see your doctor in 1-2 weeks Return to ED if worsens Patient Language: [place] Prescriptions: New amlodipine 10 mg tablet 10 mg PO DAILY Qty: 30 0RF naproxen 500 mg tablet 500 mg PO BID PRN (Reason: pain) Qty: 60 0RF No Action ondansetron 4 mg tablet,disintegrating 4 mg PO Q6H PRN (Reason: nausea and vomiting) Qty: 14 0RF hydrocodone-acetaminophen 5-300 mg tablet 1 tablet PO Q8H PRN (Reason: severe pain) Qty: 5 0RF ketorolac 10 mg tablet 10 mg PO Q6H PRN (Reason: moderate pain) 5 Days Qty: 20 0RF tamsulosin [Flomax] 0.4 mg capsule 0.4 mg PO DAILY Qty: 14 0RF cephalexin 500 mg capsule 500 mg PO Q8H 5 Days Qty: 15 0RF tramadol 50 mg tablet 50 mg PO Q6H PRN (Reason: pain) Qty: 20 0RF tamsulosin [Flomax] 0.4 mg capsule 0.4 mg PO DAILY Qty: 7 0RF ondansetron 4 mg tablet,disintegrating 4 mg PO Q6H PRN (Reason: nausea and vomiting) Qty: 14 0RF Follow-up/Referrals: Sandor,Derek Abraham M.D. [Primary Care Provider] Time of Disposition: 04:37
[2025-04-09 03:10] LABS: Hematocrit 46.9 % (40.0-54.0); Hemoglobin 15.9 g/dL (14.0-18.0); Immature Granulocyte Percent A 0.3 % (0.0-0.0); Lymphocytes Absolute Auto 2.41 K/mm3 (1.10-4.50); Mean Corpuscular HGB Conc 33.9 g/dL (32-36); Mean Corpuscular Hemoglobin 28.9 pg (27.0-31.0); Mean Corpuscular Volume 85.1 fL (78.0-102.0); Nucleated Red Blood Cells Absolute Auto 0.00 K/mm3 (0.00-0.00); Nucleated Red Blood Cells Perc 0.0 % (0-0.0); Platelet Count Result 324 K/mm3 (150-420); Red Blood Count 5.51 M/mm3 (4.70-6.10); White Blood Count 9.9 K/mm3 (4.8-10.8)
[2025-04-09 03:20] VITALS: BP 157/97
[2025-04-09 03:21] LABS: Alanine Aminotransferase 64 U/L (6-50); Albumin Level 4.8 g/dL (3.5-5.1); Alkaline Phosphatase 66 U/L (38-126); Anion Gap 13 mmol/L (4-12); Aspartate Amino Transferase 41 U/L (17-59); Bilirubin,Total 0.4 mg/dL (0.2-1.3); Blood Urea Nitrogen 16 mg/dL (9-20); Calcium 9.7 mg/dL (8.4-10.2); Carbon Dioxide 29 mmol/L (22-30); Chloride 102 mmol/L (98-107); Estimated CRCL calculation 77 ml/min; Estimated Glomerular Filt Rate > 60; Glucose 126 mg/dL (65-110); Osmolality Calculated 301 mOsm/kg (285-295); Potassium 3.5 mmol/L (3.4-5.0); Sodium 144 mmol/L (137-145); Total Protein 7.9 g/dL (6.3-8.2)
[2025-04-09] MEDS: PROCHLORPERAZINE EDISYLATE 10 MG/2 ML VIAL IV PUSH (04:05)
[2025-04-09 04:49] VITALS: BP 152/94; PULSE 98; RESP 20; TEMP 36.7; O2SAT 98
== END 2025-04-09 04:49 | disposition home or self-care (01) ==
PROVIDERS: Emergency Provider Emergency Medicine; PCP Family Medicine
DX: I10 Essential (primary) hypertension (principal); R51.9 Headache, unspecified
CPT/HCPCS: 36415; 70450; 80053; 85025; 96374; 96375; 99284; A9270; J0360; J0780; J1200